=== PATIENT | female | born 1960 | race Caucasian/White ===

== ENCOUNTER → 2016-03-21 | Outpatient (CLI) | payer OTHER ==
[2016-03-21 12:35] LABS: Basophils % (A) 1 %; CH 29.9; CHCM 32.3; Eosinophils # (A) 0.2 k/uL (0-0.7); Eosinophils % (A) 4 %; HDW 2.54; HGB 12.5 gm/dL (11.4-16.0); Luc # (Auto) 0.12; Luc % (Auto) 2; Lymphocytes # (A) 1.1 k/uL (1.0-4.8); Lymphocytes % (A) 20 %; MCH 29.7 pg (25.0-35.0); Mean Platelet Volume 6.9; Monocytes # (A) 0.3 k/uL (0-1.0); Monocytes % (A) 5 %; Neutrophils # (A) 3.7 k/uL (1.3-7.7); Neutrophils % (A) 68 %; WBC 5.4 k/uL (3.8-10.6); WBC (Perox) 5.72
== END | disposition home or self-care (01) ==
LOC: LABPAT 11:29
PROVIDERS: ATTEND Obstetrics & Gynecology
DX: Z01.812 Encounter for preprocedural laboratory examination (principal); I10 Essential (primary) hypertension
CPT/HCPCS: 85025; 93005

== ENCOUNTER 2016-04-09 08:25 | Day surgery (SDC) | payer OTHER ==
[2016-04-05 14:28] VITALS: BMI 40.3
[~2016-04-09 08:25] MED LIST: DEXAMETHASONE SOD PHOSPHATE 10 MG/ML 1 ML VIAL IV ONE; HYDROmorphone 1 MG/ML 1 ML SYRINGE IVP PRN; LACTATED RINGERS 1,000 ML IV SCH; MIDAZOLAM 2 MG/2 ML VIAL IV PRN; ONDANSETRON 4 MG/2 ML VIAL IVP ONE; Pre Op ABX Message 1 EACH MISC MISCELLANE ONE; SCOPOLAMINE 1.5MG/72HR PATCH TRANSDERM ONE
[2016-04-09 10:48] LABS: Glucose,Whole Blood 186 mg/dL (75-99)
[2016-04-09] MEDS ORDERED: LIDOCAINE 1% 20 ML VIAL (10MG/ML) FOR IV START INTRADERMA ONE (10:50)
[2016-04-09] MEDS ORDERED: LIDOCAINE 1% INJ 10MG/ML (20 ML MDV) ONE (11:06)
[2016-04-09] MEDS ORDERED: fentaNYL (PF) 50 MCG/ML 2 ML AMP ONE (11:06)
[2016-04-09] MEDS ORDERED: KETOROLAC 30 MG/ML 1 ML VIAL ONE (11:06)
[2016-04-09] MEDS ORDERED: MIDAZOLAM 2 MG/2 ML VIAL ONE (11:06)
[2016-04-09] MEDS ORDERED: SUCCINYLCHOLINE CHLORIDE 100 MG/5 ML SYR IV ONE (11:06)
[2016-04-09] MEDS ORDERED: SODIUM CHLORIDE 0.9% 100 ML BAG ONE (11:06)
[2016-04-09] MEDS ORDERED: PROPOFOL 10 MG/ML 20 ML VIAL IV ONE (11:06)
[2016-04-09] MEDS ORDERED: ceFAZolin 1,000 MG VIAL ONE (11:06)
--- NOTE | 2016-04-09 11:32 | P.OP ---
Date of Procedure: 04/09/16 Preoperative Diagnosis: Postmenopausal bleeding Postoperative Diagnosis: Pathology pending Procedure(s) Performed: Hysteroscopy, fractional D&C Anesthesia: KAITLIN Surgeon: Franci Love Estimated Blood Loss (ml): 10 IV fluids (ml): 500 Urine output (ml): 200 Pathology: other (Endometrial curettings, endocervical curettings.) Condition: stable Disposition: PACU Description of Procedure: Patient is brought to the operating suite where a general anesthetic is administered without difficulty. She's placed in the dorsal lithotomy position. The cervix, vagina, periurethral and lower abdominal areas are all prepped and draped in usual sterile fashion. The appropriate timeout is performed to assure proper patient and procedural identification. The bladder is drained for approximately 200 mL of clear yellow urine. Examination under anesthesia reveals a small anteverted uterus, adnexa are negative to palpation bilaterally. Weighted speculum was placed in the vagina. The anterior lip of the cervix is grasped with an Allis clamp. Endocervical curettings are obtained and sent to pathology under separate cover, a scant amount of tissue is procured. The uterus sounds to a depth of 9 cm in the anteverted position. The cervix is gently and systematically dilated using Hanks dilators. Hysteroscope was placed and the cavity is distended utilizing sterile fluid. Inspection of the cavity reveals no obvious polyps, fibroids, defects, septa, or tumors. Hysteroscope was removed. Cervix is then dilated to 18 mm. A medium sharp curette is used and the cavity is curettaged in all 4 quadrants for a scant amount of tissue. When this is complete, the hysteroscope is reintroduced and the cavity is free distended. Again, no residual endometrial material is noted. All sponge needle and instrument counts are correct at the end of the procedure. Patient is brought back to the recovery room in stable condition with vital signs including 98% O2 saturation, pulse 69, blood pressure 126/63. She is given 2 g of Ancef prior to leaving the operative room. Toradol was also given to aid in postoperative analgesia.
[2016-04-09 11:44] VITALS: TEMP 97.6
[2016-04-09 11:50] VITALS: RESP 16
[2016-04-09 11:55] LABS: Glucose,Whole Blood 181 mg/dL (75-99)
[2016-04-09] MEDS ORDERED: HYDROmorphone 1 MG/ML 1 ML SYRINGE IVP ONE (12:13)
[2016-04-09 12:53] VITALS: PULSE 68
[2016-04-09 13:13] VITALS: BP 130/64
== END 2016-04-09 13:35 | disposition home or self-care (01) ==
LOC: OR 08:25
PROVIDERS: ATTEND Obstetrics & Gynecology
DX: N95.0 Postmenopausal bleeding (principal); N84.0 Polyp of corpus uteri; I10 Essential (primary) hypertension; E11.9 Type 2 diabetes mellitus without complications; Z79.4 Long term (current) use of insulin; Z79.84 Long term (current) use of oral hypoglycemic drugs; F39 Unspecified mood [affective] disorder; C50.919 Malignant neoplasm of unspecified site of unspecified female breast; Z79.82 Long term (current) use of aspirin; Z79.899 Other long term (current) drug therapy
CPT/HCPCS: 88305; 58558; J2250; J1100; J2405; J0690; J2001; J3010; J1885; J1170; J0330; J2704